=== PATIENT | female | born 1960 | race Caucasian/White ===

== ENCOUNTER 2020-05-13 10:22 | Outpatient (CLI) | payer OTHER ==
[~2020-05-13 10:22] MED LIST: AMOX1TAB64 PO; DOCU-131 PO; ENOX40SY4 SQ; OXYC-306 PO; RIVA20TA PO
[2020-05-13] MEDS ORDERED: OMNIPAQUE 350 MG/ML, 100ML BOTTLE ONE (10:40)
== END 2020-05-13 23:59 | disposition home or self-care (01) ==
LOC: RAD 10:22
PROVIDERS: ATTEND Physician Assistant
DX: J43.9 Emphysema, unspecified (principal); R91.8 Other nonspecific abnormal finding of lung field; I25.10 Atherosclerotic heart disease of native coronary artery without angina pectoris; R09.02 Hypoxemia; R06.02 Shortness of breath
CPT/HCPCS: 71275; 82565; Q9967

== ENCOUNTER 2020-06-02 07:30 | Day surgery (SDC) | payer OTHER ==
[~2020-06-02] VITALS: Ht 172.7 cm; Wt 50.4 kg
[2020-06-02 07:49] VITALS: BP 171/79
[2020-06-02] MEDS ORDERED: NALOXONE 1 MG/ML, 2ML ONE (09:19)
[2020-06-02] MEDS ORDERED: MIDAZOLAM 1 MG/ML, 5ML ONE (09:19)
[2020-06-02] MEDS ORDERED: FLUMAZENIL 0.1 MG/1 ML, 5ML ONE (09:19)
[2020-06-02] MEDS ORDERED: FENTANYL PF 100 MCG/2ML ONE (09:19)
[2020-06-02] MEDS ORDERED: KETOROLAC 30 MG/1 ML IVPush STA (12:19)
[2020-06-02] MEDS ORDERED: KETOROLAC 30 MG/1 ML ONE (12:24)
== END 2020-06-02 12:40 | disposition home or self-care (01) ==
LOC: OUT 07:30
PROVIDERS: ATTEND Internal Medicine Hematology & Oncology
DX: J98.4 Other disorders of lung (principal); C34.11 Malignant neoplasm of upper lobe, right bronchus or lung; F12.10 Cannabis abuse, uncomplicated; F17.200 Nicotine dependence, unspecified, uncomplicated; Z79.899 Other long term (current) drug therapy
CPT/HCPCS: 32408; 71045; 88305; 88333; 88341; 88342; 99156; 99157; J1885; J2250; J3010; 77012; J2310

== ENCOUNTER 2020-06-05 16:39 | Outpatient (CLI) | payer OTHER ==
[2020-06-05] MEDS ORDERED: LIDOCAINE 1%, 20ML ONE (17:06)
[2020-06-05] MEDS ORDERED: FENTANYL PF 100 MCG/2ML ONE (17:17)
== END 2020-06-05 23:59 | disposition home or self-care (01) ==
LOC: RAD 16:39
DX: J93.83 Other pneumothorax (principal); F17.210 Nicotine dependence, cigarettes, uncomplicated; Z82.49 Family history of ischemic heart disease and other diseases of the circulatory system; Z83.3 Family history of diabetes mellitus
CPT/HCPCS: 32557; 71046; C1729; C1769; J3010; J3490

== ENCOUNTER 2020-06-05 17:58 | Inpatient (IN) | payer OTHER ==
[~2020-06-05] VITALS: Ht 172.7 cm; Wt 52.5 kg
--- NOTE | 2020-06-05 18:12 | NUR ---
BEDSIDE REPORT RECEIVED FROM IR RN. PT SENT FROM IR AFTER RIGHT CHEST TUBE PLACEMENT FOR PNEUMO. HX RIGHT LUNG BX ON FRIDAY. CARDIAC AND VITALS MONITORS PLACED, CHEST TUBE TO SUCTION PER ORDER.
[2020-06-05] MEDS ORDERED: ONDANSETRON 2MG/ML, 2ML ONE (18:24)
[2020-06-05] MEDS ORDERED: MORPHINE SULFATE 4 MG/ML, 1ML ONE (18:24)
[2020-06-05] MEDS ORDERED: ONDANSETRON 2MG/ML, 2ML IVPush ONE (18:30)
[2020-06-05] MEDS ORDERED: MORPHINE SULFATE 4 MG/ML, 1ML IVPush PRN (18:30)
[2020-06-05] MEDS ORDERED: DOCUSATE 100 MG CAPSULE PO PRN (19:30)
[2020-06-05] MEDS ORDERED: ONDANSETRON ODT 4 MG PO PRN (19:30)
[2020-06-05] MEDS ORDERED: POLYETHYLENE GLYCOL 17 GM PACKET PO PRN (19:30)
[2020-06-05] MEDS ORDERED: ONDANSETRON 2MG/ML, 2ML IVPush PRN (19:30)
[2020-06-05] MEDS ORDERED: BISACODYL 10 MG SUPP PR PRN (19:30)
[2020-06-05] MEDS ORDERED: hydrALAzine 20 MG/ML, 1ML IVPush PRN (19:30)
[2020-06-05] MEDS ORDERED: ACETAMINOPHEN 325 MG TABLET PO PRN (19:30)
[2020-06-05] MEDS ORDERED: IBUPROFEN 600 MG TABLET PO PRN (19:30)
--- NOTE | 2020-06-05 19:55 | NUR ---
REPORT TO MARLA VICENTE.
[2020-06-05 21:41] VITALS: BP 150/83
[2020-06-05] MEDS: morphine SULFATE 10 MG/ML, 1ML IVPush PRN (22:03)
[2020-06-06 02:11] VITALS: BP 150/82
[2020-06-06 05:05] LABS: BASOPHILS % (AUTO) 0 % (0-1); EOSINOPHILS % (AUTO) 1 % (1-7); LYMPHOCYTES % (AUTO) 12 % (22-44); MEAN CORPUSCULAR HGB CONC 35.7 g/dL (32.4-35.8); MEAN PLATELET VOLUME 6.9 fL (7.4-10.4); MONOCYTES % (AUTO) 11 % (2-9); NEUTROPHILS % (AUTO) 75 % (42-75); PLATELET COUNT 231 x10^3/uL (130-400); RED BLOOD COUNT 3.28 x10^6/uL (3.82-5.3); RED CELL DISTRIBUTION WIDTH 12.5 % (9.6-15.2)
[2020-06-06 05:09] LABS: MD NO
[2020-06-06 05:11] LABS: ANION GAP 4 mmol/L (5-15); CHLORIDE 99 mmol/L (98-107)
[2020-06-06 05:13] LABS: CREATININE 0.57 mg/dL (0.55-1.02)
[2020-06-06] MEDS: morphine SULFATE 10 MG/ML, 1ML IVPush PRN ×2 (05:35→10:32)
[2020-06-06 07:15] VITALS: BP 132/70
[2020-06-06 13:52] VITALS: BP 130/67
[2020-06-06] MEDS: HYDROcodone/APAP 5/325 TABLET PO PRN ×2 (16:59→21:04)
[2020-06-06 18:30] VITALS: BP 121/66
[2020-06-07 01:45] VITALS: BP 154/73
[2020-06-07 04:41] LABS: BASOPHILS % (AUTO) 1 % (0-1); EOSINOPHILS % (AUTO) 2 % (1-7); LYMPHOCYTES % (AUTO) 14 % (22-44); MEAN CORPUSCULAR HEMOGLOBIN 33.1 pg (27.0-34.8); MEAN CORPUSCULAR HGB CONC 35.4 g/dL (32.4-35.8); MEAN PLATELET VOLUME 6.8 fL (7.4-10.4); MONOCYTES % (AUTO) 12 % (2-9); NEUTROPHILS % (AUTO) 71 % (42-75); PLATELET COUNT 233 x10^3/uL (130-400); RED CELL DISTRIBUTION WIDTH 12.5 % (9.6-15.2)
[2020-06-07 04:44] LABS: MD NO
[2020-06-07] MEDS: HYDROcodone/APAP 5/325 TABLET PO PRN ×2 (05:49→12:46)
[2020-06-07 06:38] VITALS: BP 131/66
== END 2020-06-07 13:10 | disposition home or self-care (01) | DRG 200 ==
LOC: ED 18:56 → EDIP 19:10 → 4NE 20:12 → DCLOUNGE 06-07 12:55
PROVIDERS: ADMIT Family Medicine; ATTEND Family Medicine
PROC: 0W9930Z Drainage of Right Pleural Cavity with Drainage Device, Percutaneous Approach (ICD-10-PCS; principal; 2020-06-05)
DX: J93.83 Other pneumothorax (principal); J94.8 Other specified pleural conditions; J94.2 Hemothorax; F17.210 Nicotine dependence, cigarettes, uncomplicated; Z71.6 Tobacco abuse counseling; Z82.49 Family history of ischemic heart disease and other diseases of the circulatory system; Z83.3 Family history of diabetes mellitus; Z79.899 Other long term (current) drug therapy
CPT/HCPCS: 36415; 71045; 80048; 83880; 85025; G0378; J2405; J2270

== ENCOUNTER 2020-06-20 07:56 | Outpatient (CLI) | payer OTHER ==
[~2020-06-20 07:56] MED LIST changes: -OXYC-306 PO; +OXYC1TAB17 PO
== END 2020-06-20 23:59 | disposition home or self-care (01) ==
LOC: ROC 07:56
PROVIDERS: ATTEND Radiology Radiation Oncology
DX: C34.11 Malignant neoplasm of upper lobe, right bronchus or lung (principal); I25.10 Atherosclerotic heart disease of native coronary artery without angina pectoris; J43.9 Emphysema, unspecified; Z79.899 Other long term (current) drug therapy; Z87.891 Personal history of nicotine dependence
CPT/HCPCS: 99214; G0463

== ENCOUNTER → 2020-08-25 | Outpatient (CLI) | payer OTHER ==
[~2020-08-25] MED LIST changes: +HYDR-3237 PO
== END | disposition home or self-care (01) ==
LOC: RAD 11:24
PROVIDERS: ATTEND Radiology Radiation Oncology
DX: R91.8 Other nonspecific abnormal finding of lung field (principal)
CPT/HCPCS: 71046